=== PATIENT | male | born 1970 | race American Indian/Alaskan Native ===

== ENCOUNTER 2020-07-25 11:03 | Emergency (ER) | payer SELFPAY ==
[2020-07-25 11:15] VITALS: BP 132/84
[2020-07-25 12:22] LABS: Bilirubin,Urine NEG (Negative); Blood,Urine NEG (Negative); Color,Urine Yellow (Yellow); Mucus,Urine FEW /HPF; Protein,Urine <15 mg/dL mg/dL (Negative); Urobilinogen,Urine < 2.0 mg/dL (<2.0)
--- NOTE | 2020-07-25 14:04 | Emergency Department Report ---
ED Asthma HPI - General Chief Complaint: Back Pain/Injury Stated Complaint: L ARM PAIN/SWELLING Time Seen by Provider: 07/25/20 13:59 Source: patient Mode of arrival: Ambulatory Limitations: No Limitations - History of Present Illness MD Complaint: wheezing - Related Data Previous Rx's Medication Instructions Recorded Last Taken Type Albuterol Sulfate [Albuterol 0.63% 0.63 mg IH TID PRN #270 ml 07/25/20 Unknown Rx NEBS] Albuterol Sulfate [Proair 90 mcg IH QID PRN #1 aer.[email or web address] 07/25/20 Unknown Rx Respiclick] Beclomethasone Dipropionate [Qvar 10.6 gm IH BID #1 hfa.aeroba 07/25/20 Unknown Rx Redihaler] predniSONE [Deltasone] 10 mg PO .TAPER #21 tab 07/25/20 Unknown Rx Allergies Allergy/AdvReac Type Severity Reaction Status Date / Time No Known Allergies Allergy Unverified 07/25/20 11:12 ED Review of Systems ROS: Stated complaint: L ARM PAIN/SWELLING Other details as noted in HPI ED Past Medical Hx - Past Medical History Previous Medical History?: No - Surgical History Past Surgical History?: No - Social History Smoking Status: Never Smoker - Medications Home Medications: Home Medications Medication Instructions Recorded Confirmed Last Taken Type Albuterol Sulfate [Albuterol 0.63% 0.63 mg IH TID PRN #270 ml 07/25/20 Unknown Rx NEBS] Albuterol Sulfate [Proair 90 mcg IH QID PRN #1 aer.pow.ba 07/25/20 Unknown Rx Respiclick] Beclomethasone Dipropionate [Qvar 10.6 gm IH BID #1 hfa.aeroba 07/25/20 Unknown Rx Redihaler] predniSONE [Deltasone] 10 mg PO .TAPER #21 tab 07/25/20 Unknown Rx ED Physical Exam - General Limitations: No Limitations ED Course Vital Signs 07/25/20 11:13 Temperature 98.2 F Pulse Rate 80 Respiratory 18 Rate Blood Pressure 132/84 O2 Sat by Pulse 99 Oximetry Critical care attestation.: If time is entered above; I have spent that time in minutes in the direct care of this critically ill patient, excluding procedure time. ED Disposition Clinical Impression: Wheezing, Asthma Disposition: DC-01 TO HOME OR SELFCARE Is pt being admited?: No Does the pt Need Aspirin: No Condition: Stable Instructions: Asthma (ED) Additional Instructions: Please use Qvar as prescribed. Use your albuterol as needed. Complete your prednisone as needed. Follow-up with your primary care provider. Prescriptions: Albuterol Sulfate [Albuterol 0.63% NEBS] 0.63 mg IH TID PRN #270 ml PRN Reason: Wheezing predniSONE [Deltasone] 10 mg PO .TAPER #21 tab Albuterol Sulfate [Proair Respiclick] 90 mcg IH QID PRN #1 aer.pow.ba PRN Reason: Wheezing Beclomethasone Dipropionate [Qvar Redihaler] 10.6 gm IH BID #1 hfa.aeroba Referrals: PRIMARY CARE, [Primary Care Provider] - 3-5 Days JENNIFER CAMPBELL MD [Referring] - 3-5 Days MEGAN CANTRELL JR, MD [Staff Physician] - 3-5 Days PAULINE GONZALES MD [Staff Physician] - 3-5 Days
[2020-07-25] MEDS ORDERED: KETOROLAC 30 MG/1 ML INJ IM ONE (14:05)
--- NOTE | 2020-07-25 15:08 | Emergency Department Report ---
ED Back Pain/Injury HPI - General Chief Complaint: Back Pain/Injury Stated Complaint: L ARM PAIN/SWELLING Time Seen by Provider: 07/25/20 13:59 Source: patient Limitations: No Limitations - History of Present Illness Initial Comments: 50-year-old -[place] male presents to the emergency room complaining of left side pain and swelling. Patient denies any dysuria no shortness of breath no hematuria. He reports he is moving his bowels without this comfort. He is taking no pain medication. He has no past medical history currently takes no meds. 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 He states is been going on for about 4 days. MD Complaint: back pain Onset/Timin -: days(s) Similar Symptoms Previously: No Radiation: flank Severity scale (0 -10): 7 (Left) Quality: dull, aching Consistency: intermittent Improves With: none Worsens With: movement Associated Symptoms: denies other symptoms - Related Data Previous Rx's Medication Instructions Recorded Last Taken Type Ibuprofen [Motrin 800 MG tab] 800 mg PO Q8HR PRN 7 Days #21 07/25/20 Unknown Rx tablet Allergies Allergy/AdvReac Type Severity Reaction Status Date / Time No Known Allergies Allergy Unverified 07/25/20 11:12 ED Review of Systems ROS: Stated complaint: L ARM PAIN/SWELLING Other details as noted in HPI Comment: All other systems reviewed and negative ED Past Medical Hx - Past Medical History Previous Medical History?: No - Surgical History Past Surgical History?: No - Social History Smoking Status: Never Smoker - Medications Home Medications: Home Medications Medication Instructions Recorded Confirmed Last Taken Type Ibuprofen [Motrin 800 MG tab] 800 mg PO Q8HR PRN 7 Days #21 07/25/20 Unknown Rx tablet ED Physical Exam - General Limitations: No Limitations General appearance: alert, in no apparent distress - Head Head exam: Present: atraumatic, normocephalic - Eye Eye exam: Present: normal appearance - ENT ENT exam: Present: mucous membranes moist - Neck Neck exam: Present: normal inspection - Respiratory Respiratory exam: Present: normal lung sounds bilaterally. Absent: respiratory distress - Cardiovascular Cardiovascular Exam: Present: regular rate, normal rhythm. Absent: systolic m urmur, diastolic murmur, rubs, gallop - GI/Abdominal GI/Abdominal exam: Present: soft. Absent: distended, tenderness - Back Exam Back exam: Present: normal inspection, full ROM. Absent: CVA tenderness (L), muscle spasm, paraspinal tenderness, vertebral tenderness - Neurological Exam Neurological exam: Present: alert, oriented X3, normal gait - Psychiatric Psychiatric exam: Present: normal affect, normal mood - Skin Skin exam: Present: warm, dry, intact, normal color. Absent: rash ED Course Vital Signs 07/25/20 11:13 Temperature 98.2 F Pulse Rate 80 Respiratory 18 Rate Blood Pressure 132/84 O2 Sat by Pulse 99 Oximetry ED Medical Decision Making - Medical Decision Making 50-year-old -[place] male presents to the emergency room complaining of left side pain and swelling. Patient denies any dysuria no shortness of breath no hematuria. He reports he is moving his bowels without this comfort. He is taking no pain medication. He has no past medical history currently takes no meds. 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 He states is been going on for about 4 days. Patient reports that the Toradol injection has helped. Discussed with patient to return back to the emergency room if he starts to have any serious pain any blood in his urine. Discussed the patient to follow-up with a primary care provider. Patient verbalized understanding Critical care attestation.: If time is entered above; I have spent that time in minutes in the direct care of this critically ill patient, excluding procedure time. ED Disposition Clinical Impression: Back pain Disposition: DC-01 TO HOME OR SELFCARE Is pt being admited?: No Does the pt Need Aspirin: No Condition: Stable Additional Instructions: Take ibuprofen as needed for pain management. Increase your water intake. Follow-up with your primary care provider. Prescriptions: Ibuprofen [Motrin 800 MG tab] 800 mg PO Q8HR PRN 7 Days #21 tablet PRN Reason: Pain , Severe (7-10) Referrals: PAULINE GONZALES MD [Staff Physician] - 3-5 Days JENNIFER CAMPBELL MD [Referring] - 3-5 Days PRIMARY MD ALVERTO [Primary Care Provider] - 3-5 Days MEGAN CANTRELL JR, MD [Staff Physician] - 3-5 Days
== END 2020-07-25 15:21 | disposition home or self-care (01) ==
LOC: ED 11:03
DX: M54.89 Other dorsalgia (principal)
CPT/HCPCS: 81001; 96372; 99283; J1885